=== PATIENT | female | born 1995 | race Native Hawaiian/Other Pacific Islander ===

== ENCOUNTER 2018-07-17 05:40 | Inpatient (IN) ==
[2018-07-17] MEDS ORDERED: FAMOTIDINE 20 MG/2 ML VIAL IV ONE (05:55)
[2018-07-17] MEDS ORDERED: ceFAZolin 2,000 MG in PREMIX 1 EACH IV ONE ×2 (05:55→16:00)
[2018-07-17] MEDS ORDERED: CITRIC ACID/SODIUM CITRATE 30 ML UDCUP PO ONE (05:55)
[2018-07-17] MEDS ORDERED: OXYTOCIN 10 UNIT/ML VIAL IM ONE ×2 (05:57→16:00)
[2018-07-17] MEDS ORDERED: OXYTOCIN/LR 30 UNIT/1,000 ML BAG IV ONE ×2 (05:57→16:00)
[2018-07-17] MEDS: LACTATED RINGERS 1,000 ML IV SCH ×2 (06:14→10:01)
[2018-07-17 06:29] LABS: Basophils % 0.5 % (0.0-0.8); Eosinophils % 0.7 % (0.00-10.9); Hematocrit 34.4 VOL% (35.7-47.0); Hemoglobin 11.1 GM/DL (12.0-16.0); Immature Granulocytes Absolute 0.06 #; Lymphocytes # 1.4 10*3/uL (1.4-4.0); Lymphocytes % 23.1 % (21.3-54.2); Mean Corpuscular HGB Conc 32.3 GM/DL (32-36); Mean Corpuscular Hemoglobin 31 PG (27-34); Mean Corpuscular Volume 96.4 FL (87-102); Mean Platelet Volume 11.1 FL (9.6-12.0); Monocytes # 0.4 10*3/uL (0.11-0.8); Monocytes % 6.7 % (1.7-12.7); Platelet Count 203 T/CUMM (130-400); Red Blood Count 3.57 MC/CUMM (3.8-5.5); Red Cell Distribution Width 12.8 % (9.3-17.3); White Blood Count 5.9 T/CUMM (4-12)
[2018-07-17 06:47] LABS: Albumin 2.6 G/DL (3.4-5.0); Bilirubin,Total 0.5 MG/DL (0.2-1.0); Calcium 8.4 MG/DL (8.5-10.1); Osmolality,Calculated 270.8 MOS/KG (273-304); Potassium 3.8 MMOL/L (3.5-5.1); Total Protein 7.1 G/DL (6.4-8.3)
[2018-07-17] MEDS ORDERED: PROMETHAZINE 25 MG/1 ML VIAL IM ONE (09:39)
[2018-07-17] MEDS ORDERED: NALOXONE 0.4 MG/ML VIAL IV PRN (09:39)
[2018-07-17] MEDS ORDERED: ePHEDrine 50 MG/ML AMP IV PRN (09:39)
[2018-07-17] MEDS ORDERED: LACTATED RINGERS 250 ML IV PRN (09:39)
[2018-07-17] MEDS ORDERED: ONDANSETRON 4 MG/2 ML VIAL IV ONE (09:39)
[2018-07-17] MEDS ORDERED: hydrOXYzine HCL 25 MG/1 ML VIAL IM PRN (09:39)
[2018-07-17] MEDS ORDERED: diphenhydrAMINE 50 MG/1 ML VIAL IV PRN ×2 (09:39→22:40)
[2018-07-17] MEDS ORDERED: fentaNYL 2 MCG/ROPIV 0.2% EPID 100 ML EPIDURAL SCH (10:00)
[2018-07-17] MEDS ORDERED: OXYTOCIN/LR 20 UNIT/1,000 ML BAG IV SCH (10:00)
[2018-07-17 11:46] LABS: Apearance,Urine CLEAR (Clear); Bilirubin,Urine Negative (Negative); Blood, Urine Negative (Negative); Glucose,Urine (UA) Negative (Negative); Ketones,Urine Negative (Negative); Mucus,Urine Occasional /LPF (Occasional); Nitrite,Urine Negative (Negative); Protein,Urine Negative; RBC,Urine <1 /HPF (0-4); Squamous Epithelial Cell,Urine Occasional /HPF (0-10); Urine Color Yellow (Yellow); Urine Specific Gravity 1.011 (1.001-1.035); Urine Urobilinogen < 2.0 EU/DL (0.2-1.0); WBC,Urine <1 /HPF (0-6)
[2018-07-17] MEDS ORDERED: LACTATED RINGERS 1,000 ML IV ONE (16:35)
[2018-07-17] MEDS ORDERED: ONDANSETRON 4 MG/2 ML VIAL ONE (16:35)
[2018-07-17] MEDS ORDERED: ROPIVACAINE 0.5% 30 ML VIAL ONE (16:35)
[2018-07-17] MEDS ORDERED: MORPHINE 10 MG/10 ML VIAL ONE (16:36)
[2018-07-17] MEDS ORDERED: MAGNESIUM HYDROXIDE SUSP 30 ML UDCUP PO PRN (17:53)
[2018-07-17] MEDS ORDERED: ACETAMINOPHEN 325 MG TABLET PO PRN (17:53)
[2018-07-17] MEDS ORDERED: RHO(D) IMMUNE GLOBULIN 300 MCG SYRINGE IM ONE (17:53)
[2018-07-17] MEDS ORDERED: OXYTOCIN/LR 20 UNIT/1,000 ML BAG IV ONE (17:53)
[2018-07-17] MEDS ORDERED: ONDANSETRON 4 MG/2 ML VIAL IV PRN (17:53)
[2018-07-17] MEDS ORDERED: SIMETHICONE CHEW 80 MG TABLET PO PRN (17:53)
[2018-07-17] MEDS: KETOROLAC 30 MG/1 ML VIAL IV PRN (20:00)
[2018-07-17] MEDS ORDERED: PROMETHAZINE 25 MG/1 ML VIAL IM PRN (20:12)
[2018-07-17 20:43] LABS: Hematocrit 32.3 VOL% (35.7-47.0); Hemoglobin 10.4 GM/DL (12.0-16.0)
[2018-07-17] MEDS: DOCUSATE SODIUM 100 MG CAPSULE PO SCH (21:32)
[2018-07-17] MEDS: ceFAZolin 1,000 MG in SYRINGE 1 EACH IV SCH (23:51)
[2018-07-18] MEDS: LACTATED RINGERS 1,000 ML IV SCH ×2 (02:27→23:25)
[2018-07-18] MEDS: KETOROLAC 30 MG/1 ML VIAL IV PRN (05:07)
[2018-07-18 05:25] LABS: Basophils % 0.3 % (0.0-0.8); Eosinophils % 0.1 % (0.00-10.9); Hematocrit 31.8 VOL% (35.7-47.0); Hemoglobin 10.2 GM/DL (12.0-16.0); Immature Granulocytes % 0.4 %; Immature Granulocytes Absolute 0.03 #; Lymphocytes # 0.8 10*3/uL (1.4-4.0); Lymphocytes % 10.2 % (21.3-54.2); Mean Corpuscular HGB Conc 32.1 GM/DL (32-36); Mean Corpuscular Hemoglobin 31 PG (27-34); Mean Corpuscular Volume 97.2 FL (87-102); Mean Platelet Volume 11.3 FL (9.6-12.0); Monocytes # 0.4 10*3/uL (0.11-0.8); Monocytes % 5.2 % (1.7-12.7); Neutrophils # 6.5 10*3/uL (1.4-7.4); Neutrophils % 83.8 % (38.7-73.9); Platelet Count 170 T/CUMM (130-400); Red Blood Count 3.27 MC/CUMM (3.8-5.5); Red Cell Distribution Width 12.5 % (9.3-17.3); White Blood Count 7.8 T/CUMM (4-12)
[2018-07-18] MEDS: ceFAZolin 1,000 MG in SYRINGE 1 EACH IV SCH (08:55)
[2018-07-18] MEDS: DOCUSATE SODIUM 100 MG CAPSULE PO SCH ×2 (09:07→21:03)
[2018-07-18] MEDS: MULTIVITAMIN (PRENATAL) TABLET PO SCH (09:07)
[2018-07-18] MEDS: IBUPROFEN 800 MG TABLET PO PRN (21:03)
[2018-07-19] MEDS: IBUPROFEN 800 MG TABLET PO PRN ×2 (07:07→14:22)
[2018-07-19] MEDS: MULTIVITAMIN (PRENATAL) TABLET PO SCH (08:55)
[2018-07-19] MEDS: DOCUSATE SODIUM 100 MG CAPSULE PO SCH (08:56)
[2018-07-19] MEDS ORDERED: DIPH/TET/ACEL PERT BOOSTER VACCINE 0.5 ML VIAL IM ONE (09:30)
[2018-07-19] MEDS ORDERED: IBUPROFEN 800 MG TABLET PO PRN (14:05)
[2018-07-19 15:29] VITALS: BP 98/58
== END 2018-07-19 16:20 | disposition home or self-care (01) | DRG 540 ==
LOC: N.LDOUT 05:40 → N.LD 05:43 → N.LDOUT 05:45 → N.LD 05:56 → N.OB 19:49
PROVIDERS: ADMIT Obstetrics & Gynecology; ATTEND Obstetrics & Gynecology
PROC: LDCSECT (ICD-10-PCS; 2018-07-17 14:00)

== ENCOUNTER 2020-09-06 09:43 | Inpatient (IN) ==
[2020-09-06] MEDS: LACTATED RINGERS 1,000 ML IV SCH ×2 (10:15→20:01)
[2020-09-06] MEDS ORDERED: CITRIC ACID/SODIUM CITRATE 30 ML UDCUP PO ONE (10:44)
[2020-09-06] MEDS ORDERED: FAMOTIDINE 20 MG/2 ML VIAL IV ONE (10:55)
[2020-09-06] MEDS ORDERED: OXYTOCIN/LR 20 UNIT/1,000 ML BAG IV SCH (11:00)
[2020-09-06 11:06] LABS: Basophils % 0.2 % (0.0-0.8); Eosinophils % 0.6 % (0.00-10.9); Hematocrit 34.6 VOL% (35.7-47.0); Immature Granulocytes % 1.1 %; Immature Granulocytes Absolute 0.06 #; Lymphocytes % 17.9 % (21.3-54.2); Mean Corpuscular HGB Conc 31.8 GM/DL (32-36); Mean Corpuscular Volume 98.9 FL (87-102); Mean Platelet Volume 10.3 FL (9.6-12.0); Monocytes % 5.6 % (1.7-12.7); Neutrophils % 74.6 % (38.7-73.9); Platelet Count 186 T/CUMM (130-400); Red Cell Distribution Width 13.6 % (9.3-17.3); White Blood Count 5.4 T/CUMM (4-12)
[2020-09-06] MEDS ORDERED: ceFAZolin 2,000 MG/50 ML DUPLEX IV ONE (11:26)
[2020-09-06] MEDS ORDERED: OXYTOCIN/LR 30 UNIT/1,000 ML BAG IV ONE (12:00)
[2020-09-06] MEDS ORDERED: OXYTOCIN 10 UNIT/ML VIAL IM ONE (12:00)
[2020-09-06] MEDS ORDERED: LACTATED RINGERS 1,000 ML IV ONE ×2 (12:00→14:57)
[2020-09-06] MEDS ORDERED: TRANEXAMIC ACID 1,000 MG/10 ML VIAL ONE (12:21)
[2020-09-06] MEDS ORDERED: miSOPROStoL 200 MCG TABLET ONE (12:21)
[2020-09-06] MEDS ORDERED: METHYLERGONOVINE 0.2 MG/1 ML AMP ONE (12:22)
[2020-09-06] MEDS ORDERED: OXYTOCIN/LR 20 UNIT/1,000 ML BAG IV ONE ×2 (12:22→15:54)
[2020-09-06] MEDS ORDERED: CARBOPROST TROMETHAMINE 250 MCG/ML AMP IM ONE (12:23)
[2020-09-06] MEDS ORDERED: SODIUM CHLORIDE 0.9% 0 ML IV ONE (12:24)
[2020-09-06] MEDS ORDERED: BUPIVACAINE SPINAL 0.75% 2 ML AMP SPINAL ONE (13:14)
[2020-09-06] MEDS ORDERED: PHENYLEPHRINE 1 MG/10 ML SYRINGE IV ONE (14:47)
[2020-09-06] MEDS ORDERED: ONDANSETRON 4 MG/2 ML VIAL ONE (14:47)
[2020-09-06 15:15] LABS: Bilirubin,Urine Negative (Negative); Blood, Urine Negative (Negative); Glucose,Urine (UA) Negative (Negative); Ketones,Urine Negative (Negative); Mucus,Urine Occasional /LPF (Occasional); Nitrite,Urine Negative (Negative); Protein,Urine Negative; RBC,Urine <1 /HPF (0-4); Squamous Epithelial Cell,Urine Occasional /HPF (0-10); Urine Appearance CLEAR (Clear); Urine Color Straw (Yellow); Urine Urobilinogen < 2.0 EU/DL (0.2-1.0)
[2020-09-06 15:16] LABS: Cord Arterial Blood HCO3 22.2 MMOL/L
[2020-09-06] MEDS ORDERED: PROMETHAZINE 25 MG/1 ML VIAL ONE (15:17)
[2020-09-06 15:21] LABS: Cord Venous Blood HCO3 22.7 MMOL/L; Cord Venous Blood PCO2 43.7 MMHG; Cord Venous Blood PO2 38.7
[2020-09-06] MEDS ORDERED: KETOROLAC 30 MG/1 ML VIAL ONE (15:25)
[2020-09-06] MEDS ORDERED: SIMETHICONE CHEW 80 MG TABLET PO PRN (15:54)
[2020-09-06] MEDS ORDERED: MAGNESIUM HYDROXIDE SUSP 30 ML UDCUP PO PRN (15:54)
[2020-09-06] MEDS ORDERED: RHO(D) IMMUNE GLOBULIN 300 MCG SYRINGE IM ONE (15:54)
[2020-09-06] MEDS ORDERED: ONDANSETRON 4 MG/2 ML VIAL IV PRN (15:54)
[2020-09-06] MEDS ORDERED: ACETAMINOPHEN 325 MG TABLET PO PRN (15:54)
[2020-09-06] MEDS ORDERED: LACTATED RINGERS 1,000 ML IV SCH (16:00)
[2020-09-06] MEDS ORDERED: ACETAMINOPHEN 500 MG TABLET PO SCH ×2 (18:00→19:00)
[2020-09-06] MEDS: IBUPROFEN 800 MG TABLET PO PRN (18:03)
[2020-09-06] MEDS ORDERED: KETOROLAC 15 MG/1 ML VIAL IV SCH (21:00)
[2020-09-06] MEDS: DOCUSATE SODIUM 100 MG CAPSULE PO SCH (22:11)
[2020-09-07] MEDS: KETOROLAC 30 MG/1 ML VIAL IV SCH ×3 (00:12→12:39)
[2020-09-07 01:00] LABS: Basophils % 0.1 % (0.0-0.8); Eosinophils % 0.4 % (0.00-10.9); Hematocrit 28.9 VOL% (35.7-47.0); Hemoglobin 9.7 GM/DL (12.0-16.0); Immature Granulocytes % 0.6 %; Immature Granulocytes Absolute 0.04 #; Lymphocytes # 1.3 10*3/uL (1.4-4.0); Lymphocytes % 17.8 % (21.3-54.2); Mean Corpuscular HGB Conc 33.6 GM/DL (32-36); Mean Platelet Volume 10.7 FL (9.6-12.0); Monocytes % 5.2 % (1.7-12.7); Neutrophils % 75.9 % (38.7-73.9); Platelet Count 147 T/CUMM (130-400); Red Blood Count 2.98 MC/CUMM (3.8-5.5); Red Cell Distribution Width 13.4 % (9.3-17.3); White Blood Count 7.1 T/CUMM (4-12)
[2020-09-07 06:54] LABS: Basophils % 0.2 % (0.0-0.8); Eosinophils # 0.1 10*3/uL (0.0-0.87); Hematocrit 29.6 VOL% (35.7-47.0); Hemoglobin 9.6 GM/DL (12.0-16.0); Immature Granulocytes % 0.5 %; Immature Granulocytes Absolute 0.03 #; Lymphocytes # 1.3 10*3/uL (1.4-4.0); Lymphocytes % 22.4 % (21.3-54.2); Mean Corpuscular HGB Conc 32.4 GM/DL (32-36); Mean Corpuscular Volume 99.3 FL (87-102); Mean Platelet Volume 10.9 FL (9.6-12.0); Monocytes % 6.9 % (1.7-12.7); Platelet Count 154 T/CUMM (130-400); Red Blood Count 2.98 MC/CUMM (3.8-5.5); Red Cell Distribution Width 13.4 % (9.3-17.3); White Blood Count 5.9 T/CUMM (4-12)
[2020-09-07] MEDS: DOCUSATE SODIUM 100 MG CAPSULE PO SCH ×2 (08:57→20:29)
[2020-09-07] MEDS: MULTIVITAMIN (PRENATAL) TABLET PO SCH (08:58)
[2020-09-07] MEDS: METOCLOPRAMIDE 10 MG TABLET PO SCH ×2 (12:38→20:28)
[2020-09-08] MEDS: IBUPROFEN 800 MG TABLET PO PRN (06:12)
[2020-09-08] MEDS: METOCLOPRAMIDE 10 MG TABLET PO SCH (06:12)
[2020-09-08 08:22] VITALS: BP 91/46
[2020-09-08] MEDS: DOCUSATE SODIUM 100 MG CAPSULE PO SCH (08:26)
[2020-09-08] MEDS: MULTIVITAMIN (PRENATAL) TABLET PO SCH (08:26)
[2020-09-08] MEDS ORDERED: FERROUS SULFATE 325 MG TABLET PO SCH (09:00)
== END 2020-09-08 11:40 | disposition home or self-care (01) | DRG 788 ==
LOC: N.LD 09:43 → N.OB 20:30
PROVIDERS: ADMIT Obstetrics & Gynecology; ATTEND Obstetrics & Gynecology
PROC: LDCSECT (ICD-10-PCS; 2020-09-06 14:30)

== ENCOUNTER 2021-12-19 10:05 | Inpatient (IN) ==
[2021-12-19] MEDS ORDERED: TRANEXAMIC ACID 1,000 MG in SODIUM CHLORIDE 0.9% 100 ML IV PRN (10:38)
[2021-12-19] MEDS ORDERED: ceFAZolin 2,000 MG/50 ML DUPLEX IV ONE (10:38)
[2021-12-19] MEDS ORDERED: METHYLERGONOVINE 0.2 MG/1 ML AMP IM PRN (10:38)
[2021-12-19] MEDS ORDERED: CITRIC ACID/SODIUM CITRATE 30 ML UDCUP PO ONE (10:38)
[2021-12-19] MEDS ORDERED: miSOPROStoL 200 MCG TABLET RECTAL PRN (10:38)
[2021-12-19] MEDS ORDERED: OXYTOCIN/LR 20 UNIT/1,000 ML BAG IV ONE ×2 (10:38→17:34)
[2021-12-19] MEDS ORDERED: FAMOTIDINE 20 MG/2 ML VIAL IV ONE (10:38)
[2021-12-19] MEDS ORDERED: CARBOPROST TROMETHAMINE 250 MCG/ML AMP IM PRN (10:38)
[2021-12-19] MEDS ORDERED: LACTATED RINGERS 1,000 ML IV SCH ×2 (11:00→18:00)
[2021-12-19 11:09] LABS: Basophils % 0.2 % (0.0-0.8); Eosinophils % 0.8 % (0.00-10.9); Hematocrit 32.2 VOL% (35.7-47.0); Hemoglobin 10.3 GM/DL (12.0-16.0); Immature Granulocytes % 0.4 %; Immature Granulocytes Absolute 0.02 #; Lymphocytes % 18.9 % (21.3-54.2); Mean Corpuscular Volume 96.4 FL (87-102); Mean Platelet Volume 10.6 FL (9.6-12.0); Monocytes # 0.2 10*3/uL (0.11-0.8); Monocytes % 4.5 % (1.7-12.7); Neutrophils % 75.2 % (38.7-73.9); Platelet Count 171 T/CUMM (130-400); Red Blood Count 3.34 MC/CUMM (3.8-5.5); Red Cell Distribution Width 14.7 % (9.3-17.3); White Blood Count 5.1 T/CUMM (4-12)
[2021-12-19 11:32] LABS: Alanine Aminotransferase 14 U/L (13-56); Albumin 2.3 G/DL (3.4-5.0); Alkaline Phosphatase 139 U/L (45-117); Aspartate Amino Transferase 12 U/L (0-37); Bilirubin,Total < 0.39 MG/DL (0.20-1.00); Blood Urea Nitrogen 10 MG/DL (7-18); Calcium 8.7 MG/DL (8.5-10.1); Carbon Dioxide 19 MMOL/L (21-32); Chloride 110 MMOL/L (98-107); Glucose 90 MG/DL (74-106); Osmolality,Calculated 275.5 MOS/KG (273-304); Potassium 3.7 MMOL/L (3.5-5.1); Sodium 139 MMOL/L (136-145); Total Protein 6.1 G/DL (6.4-8.2)
[2021-12-19] MEDS ORDERED: OXYTOCIN/LR 30 UNIT/1,000 ML BAG IV ONE (13:00)
[2021-12-19] MEDS ORDERED: OXYTOCIN 10 UNIT/ML VIAL IM ONE ×2 (13:00→13:02)
[2021-12-19] MEDS ORDERED: BUPIVACAINE MPF 0.5% 30 ML VIAL ONE (16:24)
[2021-12-19] MEDS ORDERED: buprenorphine HCL 0.3 MG/ML VIAL ONE (16:24)
[2021-12-19] MEDS ORDERED: PHENYLEPHRINE 1 MG/10 ML SYRINGE IV ONE (16:26)
[2021-12-19] MEDS ORDERED: ONDANSETRON 4 MG/2 ML VIAL ONE (16:26)
[2021-12-19] MEDS ORDERED: fentaNYL 100 MCG/2 ML VIAL ONE (17:17)
[2021-12-19 17:19] LABS: Protein,Urine 30 mg/dL (Negative); Urine Appearance Clear (Clear); Urine Color Yellow (Yellow)
[2021-12-19 17:20] LABS: Bilirubin,Urine Negative (Negative); Blood, Urine Trace mg/dL (Negative); Glucose,Urine (UA) Negative (Negative); Ketones,Urine Negative (Negative); Nitrite,Urine Negative (Negative); Urine Urobilinogen 0.2 eU/dL (<2.0)
[2021-12-19 17:20] LABS: Cord Arterial Blood HCO3 21.2 MMOL/L
[2021-12-19 17:22] LABS: Mucus,Urine Occasional /LPF (Occasional); RBC,Urine 1 /HPF (0-4); Squamous Epithelial Cell,Urine Occasional /HPF (0-10)
[2021-12-19 17:26] LABS: Cord Venous Blood HCO3 22.6 MMOL/L; Cord Venous Blood PCO2 42.4 MMHG; Cord Venous Blood PO2 35.2
[2021-12-19] MEDS ORDERED: KETOROLAC 30 MG/1 ML VIAL IV SCH (17:30)
[2021-12-19] MEDS ORDERED: ACETAMINOPHEN 500 MG TABLET PO SCH (17:30)
[2021-12-19] MEDS ORDERED: SIMETHICONE CHEW 80 MG TABLET PO PRN (17:34)
[2021-12-19] MEDS ORDERED: MAGNESIUM HYDROXIDE SUSP 30 ML UDCUP PO PRN (17:34)
[2021-12-19] MEDS ORDERED: ACETAMINOPHEN 325 MG TABLET PO PRN (17:34)
[2021-12-19] MEDS ORDERED: RHO(D) IMMUNE GLOBULIN 300 MCG SYRINGE IM ONE (17:34)
[2021-12-19] MEDS ORDERED: ONDANSETRON 4 MG/2 ML VIAL IV PRN (17:34)
[2021-12-20] MEDS: KETOROLAC 30 MG/1 ML VIAL IV SCH ×3 (01:19→14:25)
[2021-12-20] MEDS: ACETAMINOPHEN 500 MG TABLET PO SCH ×3 (01:20→14:26)
[2021-12-20] MEDS: DOCUSATE SODIUM 100 MG CAPSULE PO SCH ×3 (07:50→21:00)
[2021-12-20] MEDS: MULTIVITAMIN (PRENATAL) TABLET PO SCH (14:25)
[2021-12-20] MEDS: IBUPROFEN 800 MG TABLET PO PRN (22:31)
[2021-12-21 06:26] LABS: Basophils % 0.2 % (0.0-0.8); Eosinophils # 0.1 10*3/uL (0.0-0.87); Eosinophils % 1.8 % (0.00-10.9); Hematocrit 30.3 VOL% (35.7-47.0); Hemoglobin 9.8 GM/DL (12.0-16.0); Immature Granulocytes % 0.5 %; Immature Granulocytes Absolute 0.03 #; Lymphocytes # 1.3 10*3/uL (1.4-4.0); Lymphocytes % 20.2 % (21.3-54.2); Mean Corpuscular HGB Conc 32.3 GM/DL (32-36); Mean Corpuscular Volume 98.1 FL (87-102); Monocytes # 0.4 10*3/uL (0.11-0.8); Monocytes % 5.6 % (1.7-12.7); Neutrophils % 71.7 % (38.7-73.9); Platelet Count 152 T/CUMM (130-400); Red Blood Count 3.09 MC/CUMM (3.8-5.5); Red Cell Distribution Width 15.2 % (9.3-17.3); White Blood Count 6.2 T/CUMM (4-12)
[2021-12-21] MEDS: MULTIVITAMIN (PRENATAL) TABLET PO SCH (10:02)
[2021-12-21] MEDS: DOCUSATE SODIUM 100 MG CAPSULE PO SCH (10:02)
[2021-12-21] MEDS: IBUPROFEN 800 MG TABLET PO PRN (10:06)
[2021-12-21 10:56] VITALS: BP 117/77
== END 2021-12-21 14:29 | disposition home or self-care (01) | DRG 788 ==
LOC: N.LD 10:05 → N.OB 22:26
PROVIDERS: ADMIT Obstetrics & Gynecology; ATTEND Obstetrics & Gynecology
PROC: LDCSECT (ICD-10-PCS; 2021-12-19 17:00)